=== PATIENT | female | born 1950 | race Two or more races ===

== ENCOUNTER 2025-07-09 13:44 | Emergency (ER) | payer MEDICARE, OTHER ==
[~2025-07-09] VITALS: Ht 165.1 cm; Wt 90.3 kg
[2025-07-09 15:03] LABS: PLATELET COUNT (AUTO) 255 K/uL (150-450); RED BLOOD CELL COUNT(AUTO) 4.71 MIL/uL (4.0-5.2); RED CELL DISTRIBUTION WIDTH 14.5 % (11.5-15.0); WHITE BLOOD COUNT (AUTO) 13.0 K/uL (4.3-11.0)
[2025-07-09 15:15] LABS: CALCIUM, SERUM 8.9 mg/dL (8.5-10.1); CREATININE 1.0 mg/dL (0.6-1.3); SERUM AMMONIA 5 umol/L (11-32); SODIUM SERUM 133 mmol/L (136-145); UREA NITROGEN, BLOOD 13 mg/dL (7-18)
[2025-07-09] MEDS ORDERED: IV NS 0.9% 250 ML IV ONE (15:15)
[2025-07-09] MEDS ORDERED: IOHEXOL-300 100 ML VIAL IV ONE (15:15)
[2025-07-09 15:20] LABS: ALCOHOL, BLOOD < 3 mg/dL (0-10); ASPARTATE AMINOTRANSFERASE 17 U/L (15-37); TOTAL PROTEIN, SERUM 8.2 g/dL (6.4-8.2)
[2025-07-09 15:26] LABS: LACTIC ACID 1.9 mmol/L (0.4-2.0)
[2025-07-09 15:28] LABS: INR 1.05 (0.91-1.10)
[2025-07-09] MEDS ORDERED: ONDANSETRON HCL/PF 4 MG/2 ML VIAL ONE (15:45)
[2025-07-09] MEDS: ONDANSETRON HCL/PF - ER 4 MG/2 ML VIAL IV ONE (15:46)
[2025-07-09] MEDS ORDERED: LABETALOL HCL IV 100MG VIAL ONE (16:32)
[2025-07-09] MEDS: LABETALOL HCL IV 100MG VIAL IV ONE (16:36)
[2025-07-09 16:41] VITALS: BP 173/102; TEMP 99.7; O2SAT 92
== END 2025-07-09 16:45 | disposition short-term general hospital (02) ==
LOC: ER 13:48
DX: I60.9 Nontraumatic subarachnoid hemorrhage, unspecified (principal); I10 Essential (primary) hypertension; E11.9 Type 2 diabetes mellitus without complications; Z88.0 Allergy status to penicillin; Z79.899 Other long term (current) drug therapy
CPT/HCPCS: 99291; 96374; 96375; 93005; 71045; 71260; 70450; 74177; 82140; 85025; 80048; 82550; 87040 ×2; 83605; 80076; 36415; 84443; 84484; 85730; 82962; 80143; 80320; J3490; J2405 ×2; J7050; Q9967; G0480